=== PATIENT | male | born 1950 | race Caucasian/White ===

== ENCOUNTER 2021-01-30 12:20 | Inpatient (IN) | payer MEDICARE, BC ==
[~2021-01-30] VITALS: Ht 177.8 cm; Wt 92.1 kg
[2021-01-30] MEDS ORDERED: IV NORMAL SALINE 500 ML BAG IV ONE (12:45)
[2021-01-30] MEDS ORDERED: METO-357 PO (12:46)
[2021-01-30] MEDS ORDERED: AMLO5TAB4 PO (12:46)
[2021-01-30] MEDS ORDERED: ATOR10TA PO (12:46)
[2021-01-30] MEDS ORDERED: CLOP75TA15 PO (12:46)
[2021-01-30 12:51] LABS: HEMATOCRIT 41.5 % (36.7-47.1); MEAN CORPUSCULAR VOLUME 92.7 fL (73.0-96.2); PLATELET COUNT (AUTO) 237 K/uL (152-348)
[2021-01-30 13:00] LABS: CARBON DIOXIDE 27 mmol/L (21-32); CHLORIDE 104 mmol/L (98-107); CREATININE 1.4 mg/dL (0.6-1.3); GLUCOSE 159 mg/dL (74-106); POTASSIUM 3.5 mmol/L (3.5-5.1); UREA NITROGEN, BLOOD 24 mg/dL (7-18)
--- NOTE | 2021-01-30 13:04 | NUR ---
PT IS IN ROM #1B. DR GIRON EVALUATED THE PT.
[2021-01-30 13:12] LABS: ALANINE AMINOTRANSFERASE 37 U/L (16-63); ALKALINE PHOSPHATASE 135 U/L (50-136); ASPARTATE AMINOTRANSFERASE 18 U/L (15-37); BILIRUBIN,DIRECT 0.2 mg/dL (0.0-0.2); BILIRUBIN,TOTAL 0.8 mg/dL (0.2-1.0)
--- NOTE | 2021-01-30 13:19 | NUR ---
LIST OF MEDS OBTAINED INCOMPLETE - WENT HOME TO GET COMPLETE LIST OF HOME MEDS.
[2021-01-30] MEDS ORDERED: NITROGLYCERIN 0.4 MG/TAB BOTTLE SL PRN (13:45)
[2021-01-30] MEDS ORDERED: MAG HYDROX/AL HYDROX/SIMETH 30 ML LIQUID UDC PO PRN (13:45)
[2021-01-30] MEDS ORDERED: ONDANSETRON 4 MG/2 ML VIAL IV PRN (13:45)
[2021-01-30] MEDS ORDERED: MORPHINE SULFATE 2 MG/1 ML DISP.SYRIN IV PRN (13:45)
[2021-01-30] MEDS ORDERED: ACETAMINOPHEN 325 MG TABLET PO PRN (13:45)
[2021-01-30] MEDS ORDERED: DOCUSATE SODIUM 100 MG CAPSULE PO PRN (13:45)
[2021-01-30] MEDS ORDERED: RIVA10TA PO (13:50)
[2021-01-30] MEDS ORDERED: AZIL1TAB3 PO (13:50)
--- NOTE | 2021-01-30 15:50 | NUR ---
PT WAS TRANSFERED TO ROOM #316. REPORT WAS GIVEN TO STAFF RADIOGRAPHER.
--- NOTE | 2021-01-30 15:55 | NUR ---
received from ER per w/c awake alert and oriented, with him, placed on telemetry- SR 63, denies of pain, no shortness of breath, oriented to bed control and nurse call button, understood, initial assessment done, needs attended, call light within reach
[2021-01-30 15:59] VITALS: BP 153/82
--- NOTE | 2021-01-30 18:30 | NUR ---
no distress noted, no chest pain, family at bedside, remains on SR 60's, endorsed to retail shift manager RN
--- NOTE | 2021-01-30 20:14 | NUR ---
Received patient in bed awake alert x4.Denies pain at this time.No SOB. On RA.Iv on right AC 18 g patent and intact.NSR on tele.Received call from Lab Troponin result is 0.787 .Relayed to Gino Da Silva NNO at this time.Continue to monitor.Call light with in reach.VVS.
[2021-01-30 20:15] VITALS: BP 141/80
[2021-01-30] MEDS: AMLODIPINE 5 MG TABLET PO SCH (20:32)
[2021-01-30] MEDS ORDERED: ATORVASTATIN 10 MG TABLET PO SCH (21:00)
[2021-01-31 00:18] VITALS: BP 110/78
[2021-01-31 03:26] LABS: HEMATOCRIT 40.5 % (36.7-47.1); MEAN CORPUSCULAR HEMOGLOBIN 31.3 uug (23.8-33.4); MEAN CORPUSCULAR VOLUME 92.2 fL (73.0-96.2); PLATELET COUNT (AUTO) 219 K/uL (152-348)
[2021-01-31 03:42] LABS: BILIRUBIN,TOTAL 0.5 mg/dL (0.2-1.0); CREATININE 1.3 mg/dL (0.6-1.3); MAGNESIUM 1.8 mg/dL (1.8-2.4); PHOSPHOROUS 3.4 mg/dL (2.5-4.9); POTASSIUM 3.3 mmol/L (3.5-5.1); TOTAL PROTEIN, SERUM 6.1 g/dL (6.4-8.2)
[2021-01-31 03:51] LABS: THYROID STIMULATING HORMONE 0.93 mIU/mL (0.358-3.740)
--- NOTE | 2021-01-31 04:10 | NUR ---
Received Troponin result of 0.712 .Notified jake PerezO at this time. Will continue to monitor.
[2021-01-31 04:18] VITALS: BP 127/81
--- NOTE | 2021-01-31 07:00 | NUR ---
RECEIVED PT AWAKE, ALERT AND ORIENTEDX4. PT IN NO ACUTE DISTRESS. IV INTACT. PT ON ROOM AIR. PT ON SINUS RHYTHM. SAFETY AND COMFORT PROVIDED. WILL CONTINUE TO MONITOR.
[2021-01-31 07:39] LABS: *BILIRUBIN,URIN NEGATIVE (NEGATIVE); *CLARITY,URINE CLEAR (CLEAR); *COLOR,URINE YELLOW (YELLOW); *KETONES,URINE NEGATIVE (NEGATIVE); *UROBILINOGEN,URINE 0.2 E.U./dl (NORMAL); LEUKOCYTE ESTERASE ,URINE NEGATIVE (NEGATIVE); NITRITE, URINE NEGATIVE (NEGATIVE); UGLUCOSE NEGATIVE (NEGATIVE)
[2021-01-31 07:45] LABS: *BLOOD, URINE TRACE (NEGATIVE)
[2021-01-31 07:51] LABS: *CREATININE,URINE 74.2 mg/dL (30-125); *URINE TOTAL PROTEIN RANDOM < 6.0 mg/dL (<150/24HR)
[2021-01-31] MEDS ORDERED: POTASSIUM CHLORIDE 10 MEQ TAB.PRT.SR PO ONE (08:00)
[2021-01-31 08:15] VITALS: BP 139/79
[2021-01-31] MEDS: METOPROLOL SUCCINATE XL 50 MG TAB.SR.24H PO SCH (08:37)
[2021-01-31] MEDS: ASPIRIN 81 MG TAB.CHEW PO SCH (08:37)
[2021-01-31] MEDS: CLOPIDOGREL 75 MG TABLET PO SCH (08:37)
[2021-01-31] MEDS ORDERED: AMLODIPINE 5 MG TABLET PO SCH (09:00)
[2021-01-31] MEDS: ENOXAPARIN SODIUM 100 MG/ML DISP.SYRIN SQ SCH ×2 (09:00→20:49)
[2021-01-31] MEDS: EDARBYCLOR PO SCH (09:00)
[2021-01-31] MEDS ORDERED: RIVAROXABAN 10 MG TABLET PO SCH (09:00)
[2021-01-31] MEDS ORDERED: ENOXAPARIN SODIUM 100 MG/ML DISP.SYRIN SQ SCH (09:00)
--- NOTE | 2021-01-31 09:30 | NUR ---
PT REFUSED LOVENOX AND NO DRUG AVAILABLE FOR HIS EDARBYCLOR. PT WAS SEEN BY DR. MARCUS WHITE AND ADRIEL KENNEY NP,
--- NOTE | 2021-01-31 10:35 | NUR ---
CALLED DR. KEANE REGARDING PT AGREEABLE FOR HEART CATHETERIZATION. ORDERED TELEPHONE ORDER FOR LEFT HEART CATHETERIZATION WITH POSSIBLE PCI.
[2021-01-31 11:10] LABS: BACTERIA,URINE NONE SEEN /HPF (NONE SEEN); SQUAMOUS EPITHELIAL CELL,UR NONE SEEN /HPF (NONE SEEN); WBC,URINE 0-3 /HPF (0-3)
[2021-01-31 11:55] VITALS: BP 141/67
--- NOTE | 2021-01-31 14:50 | NUR ---
MIDLINE INSERTION ORDERED BY DR. KEANE. PT AGREED TO IT. PT STABLE WILL CONTINUE TO MONITOR.
[2021-01-31 16:00] VITALS: BP 114/70
--- NOTE | 2021-01-31 19:04 | NUR ---
PT IN NO ACUTE DISTRESS.WAITING FOR THE PERSON TO DO MIDLINE. PT ON SINUS RHYTHM. SAFETY AND COMFORT PROVIDED. WILL ENDORSE TO INCOMING NURSE FOR CONTINUITY OF CARE.
--- NOTE | 2021-01-31 19:40 | NUR ---
Patient alert oriented, no sob no chest pain, no complain of pain at this time. Patient reminded that he going to be NPO after midnight, awaiting for midline/picc line staff.
[2021-01-31 20:15] VITALS: BP_SYST 152; BP_SYST 157; BP_DIAS 63; BP_DIAS 67
[2021-01-31] MEDS: ATORVASTATIN 40 MG TABLET PO SCH (20:40)
[2021-01-31] MEDS: AMLODIPINE 5 MG TABLET PO SCH (20:40)
[2021-01-31] MEDS ORDERED: ATORVASTATIN 10 MG TABLET PO SCH (21:00)
--- NOTE | 2021-01-31 22:00 | NUR ---
Patient refused lovenox inj, explained the risk and benefit.
--- NOTE | 2021-02-01 00:05 | NUR ---
Patient has midline 18gauge on left upper arm, tolerate well. cont to monitor.
[2021-02-01 00:09] VITALS: BP 151/88
[2021-02-01 04:18] VITALS: BP 107/70
[2021-02-01 06:52] LABS: HEMATOCRIT 41.1 % (36.7-47.1); MEAN CORPUSCULAR HEMOGLOBIN 31.8 uug (23.8-33.4); MEAN CORPUSCULAR VOLUME 92.4 fL (73.0-96.2); PLATELET COUNT (AUTO) 232 K/uL (152-348)
[2021-02-01 07:04] LABS: BILIRUBIN,TOTAL 0.8 mg/dL (0.2-1.0); CREATININE 1.2 mg/dL (0.6-1.3); MAGNESIUM 1.9 mg/dL (1.8-2.4); PHOSPHOROUS 3.6 mg/dL (2.5-4.9); POTASSIUM 3.7 mmol/L (3.5-5.1); TOTAL PROTEIN, SERUM 6.3 g/dL (6.4-8.2)
--- NOTE | 2021-02-01 07:05 | NUR ---
PATIENT ALERT ORIENTED, NO SOB NO CHEST PAIN, LEFT UPPER ARM MIDLINE INTACT, NO COMPLAIN OF PAIN, REMAINS NPO AT THIS TIME, CONT TO MONITOR.
--- NOTE | 2021-02-01 08:00 | NUR ---
AWAKE ALERT AND ORIENTED X3 KEPT NPO FOR HEART CATH AT [address] [facility]. SR ON MONITOR
[2021-02-01] MEDS: ASPIRIN 81 MG TAB.CHEW PO SCH (09:00)
[2021-02-01] MEDS: ENOXAPARIN SODIUM 100 MG/ML DISP.SYRIN SQ SCH ×2 (09:00→22:00)
[2021-02-01] MEDS: EDARBYCLOR PO SCH (09:00)
[2021-02-01] MEDS: CLOPIDOGREL 75 MG TABLET PO SCH (09:17)
[2021-02-01] MEDS: METOPROLOL SUCCINATE XL 50 MG TAB.SR.24H PO SCH (09:18)
--- NOTE | 2021-02-01 09:22 | NUR ---
DR KEANE NOTIFIED OF LOVENOX FOR AM DOSE AND SAID TO HOLD AND GIVE ALL PO MEDS
--- NOTE | 2021-02-01 11:00 | NUR ---
REPORT GIVEN TO [facility] FOR HEART CATH AND POSS PCI
--- NOTE | 2021-02-01 11:30 | NUR ---
to [facility] for heart cat and possible PCI VIA [facility]
[2021-02-01 11:47] VITALS: BP 141/92
--- NOTE | 2021-02-01 15:10 | NUR ---
PATIENT STILL IN [facility] FOR HEART CATH
--- NOTE | 2021-02-01 21:52 | NUR ---
Patient back from [facility] s/p cardiac cath. Patient alert oriented, no sob no chest pain, no complain of pain, patient with left femoral pressure dressing., cont IV NS hydration total 400cc. cont to monitor.
[2021-02-01] MEDS: ATORVASTATIN 40 MG TABLET PO SCH (22:02)
[2021-02-01] MEDS: AMLODIPINE 5 MG TABLET PO SCH (22:02)
[2021-02-01 22:39] VITALS: BP 163/85
[2021-02-02 04:50] VITALS: BP 138/84
--- NOTE | 2021-02-02 06:32 | NUR ---
PATIENT ASLEEP BUT AROUSABLE, TELE MONITOR SINUS RHTYHM, NO COMPLAIN OF PAIN, LEFT GROIN DRESSING INTACT, NO BLEEDING NOTED, CONT TO MONITOR.
[2021-02-02 06:51] LABS: HEMATOCRIT 40.8 % (36.7-47.1); MEAN CORPUSCULAR HEMOGLOBIN 32.1 uug (23.8-33.4); MEAN CORPUSCULAR VOLUME 92.1 fL (73.0-96.2); PLATELET COUNT (AUTO) 235 K/uL (152-348)
[2021-02-02 07:03] LABS: CREATININE 1.3 mg/dL (0.6-1.3); MAGNESIUM 1.9 mg/dL (1.8-2.4); POTASSIUM 3.8 mmol/L (3.5-5.1)
[2021-02-02 08:03] VITALS: BP 148/83
[2021-02-02] MEDS: ASPIRIN 81 MG TAB.CHEW PO SCH (08:51)
[2021-02-02] MEDS: CLOPIDOGREL 75 MG TABLET PO SCH (08:51)
[2021-02-02] MEDS: METOPROLOL SUCCINATE XL 50 MG TAB.SR.24H PO SCH (08:52)
[2021-02-02] MEDS: EDARBYCLOR PO SCH (09:00)
[2021-02-02] MEDS: ENOXAPARIN SODIUM 100 MG/ML DISP.SYRIN SQ SCH (09:00)
[2021-02-02 11:07] VITALS: BP 98/64
--- NOTE | 2021-02-02 11:52 | NUR ---
O900 [place] PATIENT OWN MEDS NOT GIVEN, ADVISED PATIENT AND FAMILY TO BRING MEDS
--- NOTE | 2021-02-02 12:00 | NUR ---
SEEN BY DR KEANE SAID PATIENT IS CLEARED FOR DISCHARGE
[2021-02-02] MEDS ORDERED: METO-358 PO (12:18)
[2021-02-02] MEDS ORDERED: NITR0.4T48 SL (12:18)
[2021-02-02] MEDS ORDERED: ASPI81TA31 PO (12:18)
--- NOTE | 2021-02-02 12:30 | NUR ---
COMPUTER OPERATIONS SUPERVISOR BENJAMIN IN AND SPOKE WITH PATIENT, DISCHARGE ORDER GIVEN
--- NOTE | 2021-02-02 13:58 | NUR ---
PATIENT WENT HOME WITH ORDERS AND FOLLOW-UP INSTRUCTION ACCOMPANIED BY DAUGHTER
[2021-02-02 15:07] LABS: A/G RATIO 1.2 (0.7-1.7); ALBUMIN 3.2 g/dL (2.9-4.4); ALPHA-1-GLOBULIN 0.2 g/dL (0.0-0.4); ALPHA-2-GLOBULIN 0.7 g/dL (0.4-1.0); BETA GLOBULIN 0.9 g/dL (0.7-1.3); GAMMA GLOBULIN 0.9 g/dL (0.4-1.8); GLOBULIN, TOTAL 2.7 g/dL (2.2-3.9); M-SPIKE Not Observed g/dL (Not Observed)
== END 2021-02-02 14:00 | disposition home or self-care (01) | DRG 280 ==
LOC: ER 12:23 → TELE3 15:25
PROVIDERS: ADMIT Registered Nurse; ATTEND Nurse Practitioner Family
PROC: 05H633Z Insertion of Infusion Device into Left Subclavian Vein, Percutaneous Approach (ICD-10-PCS; principal; 2021-01-31)
PROC: B547ZZA Ultrasonography of Left Subclavian Vein, Guidance (ICD-10-PCS; 2021-01-31)
DX: I21.4 Non-ST elevation (NSTEMI) myocardial infarction (principal); N17.0 Acute kidney failure with tubular necrosis; I25.10 Atherosclerotic heart disease of native coronary artery without angina pectoris; E78.5 Hyperlipidemia, unspecified; I25.119 Atherosclerotic heart disease of native coronary artery with unspecified angina pectoris; Z95.1 Presence of aortocoronary bypass graft; Z86.79 Personal history of other diseases of the circulatory system; N18.9 Chronic kidney disease, unspecified; I12.9 Hypertensive chronic kidney disease with stage 1 through stage 4 chronic kidney disease, or unspecified chronic kidney disease; Z98.890 Other specified postprocedural states; Z20.822 Contact with and (suspected) exposure to COVID-19; I73.9 Peripheral vascular disease, unspecified
CPT/HCPCS: 36415; 70030-TC; 71045; 83615; 83735; 83970; 84100; 84155; 84156; 84165; 84300; 84443; 85025; 85730; 86140; 93005; 93307; A4663; G0378; J1650; J7030